=== PATIENT | female | born 1960 | race American Indian/Alaskan Native ===

== ENCOUNTER 2017-07-28 14:40 | Outpatient (CLI) | payer BC ==
--- NOTE | 2017-07-28 15:13 | Mammography Report ---
BILATERAL DIGITAL SCREENING MAMMOGRAM with CAD: 07/28/17 14:40:00 CLINICAL: Routine screening. COMPARISON:07/20/16 FINDINGS: The breasts are heterogeneously dense, which may obscure small masses. No mass, architectural distortion or suspicious calcifications. IMPRESSION: No mammographic evidence of malignancy. BI-RADS CATEGORY: 1 - - Negative RECOMMENDATION: Routine mammographic screening in one year. COMMENT: Patient follow-up letters are generated by our [employer] application.
== END 2017-07-28 14:41 | disposition home or self-care (01) ==
LOC: MAMMO 14:40
PROVIDERS: ATTEND Obstetrics & Gynecology Gynecology
DX: Z12.31 Encounter for screening mammogram for malignant neoplasm of breast (principal)
CPT/HCPCS: 77067; G0202

== ENCOUNTER 2018-08-01 10:26 | Outpatient (CLI) | payer BC ==
--- NOTE | 2018-08-01 11:16 | Mammography Report ---
BILATERAL MAMMOGRAM: FINDINGS: The breast tissue is heterogeneously dense, which could obscure detection of small masses (approximately 50%-75% glandular). No mass, distortion, suspicious calcification, or skin change is seen. No significant changes when compared to exams dating back to July 2016. CAD was utilized. IMPRESSION: Negative mammogram. There is no mammographic evidence of malignancy. RECOMMENDATION: Follow-up per ACS guidelines. BI-RADS CATEGORY: 1 = Negative ACR BI-RADS MAMMOGRAPHIC CODES: 0 = Needs additional imaging evaluation; 1 = Negative; 2 = Benign; 3 = Probably benign; 4 = Suspicious; 5 = Malignant; 6 = Known biopsy-proven malignancy COMMENT: 1. Dense breast tissue, i.e., adenosis, fibrocystic changes, etc., may obscure an underlying neoplasm. 2. Approximately 10% of cancers are not detected with mammography. 3. A negative mammography report should not delay biopsy if a clinically suspicious mass is present. COMMENT: Patient follow-up letters are generated in [place].
== END 2018-08-01 10:27 | disposition home or self-care (01) ==
LOC: MAMMO 10:26
PROVIDERS: ATTEND Obstetrics & Gynecology Gynecology
DX: Z12.31 Encounter for screening mammogram for malignant neoplasm of breast (principal)
CPT/HCPCS: 77067

== ENCOUNTER 2019-08-04 13:05 | Outpatient (CLI) | payer OTHER ==
--- NOTE | 2019-08-07 14:11 | Mammography Report ---
DIGITAL SCREENING MAMMOGRAM WITH CAD, 08/04/2019 INDICATION: Routine screening mammography. TECHNIQUE: Digital bilateral 2D mammography was obtained in the craniocaudal and mediolateral obliq ue projections. This examination was interpreted with the benefit of Computer-Aided Detection analysi s. COMPARISON: 08/01/2018 FINDINGS: Breast Density: The breasts are heterogeneously dense, which may obscure small masses. There is no evidence of dominant mass, suspicious calcifications or architectural distortion in eithe r breast. IMPRESSION: No mammographic evidence of malignancy. Follow up recommendation: Routine yearly BI-RADS Category 1: Negative. A "normal" or negative report should not discourage follow up or biopsy of a clinically significant f inding. A written summary of these findings will be mailed to the patient. The patient will be entered into a mammography reporting system which will generate a reminder letter for the patient's next appointmen t at the appropriate interval. The [employer] recommends yearly mammograms starting at age 40 and continuing as l eduard as a woman is in good health. Breast MRI is recommended for women with an approximate 20-25% or greater lifetime risk of breast cancer, including women with a strong family history of breast or ova jyoti cancer or who have been treated for Hodgkin's disease. Signer Name: Gary Johns MD Signed: 08/07/2019 2:07 PM Workstation Name: [id number]
== END 2019-08-04 13:06 | disposition home or self-care (01) ==
LOC: MAMMO 13:05
PROVIDERS: ATTEND Obstetrics & Gynecology Gynecology
DX: Z12.31 Encounter for screening mammogram for malignant neoplasm of breast (principal)
CPT/HCPCS: 77067

== ENCOUNTER 2020-08-05 08:24 | Outpatient (CLI) | payer OTHER ==
--- NOTE | 2020-08-05 10:28 | Mammography Report ---
DIGITAL SCREENING MAMMOGRAM WITH CAD, 08/05/2020 INDICATION: Routine screening mammography. TECHNIQUE: Digital bilateral 2D mammography was obtained in the craniocaudal and mediolateral obliq ue projections. This examination was interpreted with the benefit of Computer-Aided Detection analysi s. COMPARISON: Prior mammogram 08/04/2019 and 08/01/2018 FINDINGS: Breast Density: The breasts are heterogeneously dense, which may obscure small masses. There is no evidence of dominant mass, suspicious calcifications or architectural distortion in eithe r breast. There has been no significant change compared with the prior examinations. IMPRESSION: Follow up recommendation: Routine yearly BI-RADS Category 1: Negative. A "normal" or negative report should not discourage follow up or biopsy of a clinically significant f inding. A written summary of these findings will be mailed to the patient. The patient will be entered into a mammography reporting system which will generate a reminder letter for the patient's next appointmen t at the appropriate interval. The [employer] recommends yearly mammograms starting at age 40 and continuing as l eduard as a woman is in good health. Breast MRI is recommended for women with an approximate 20-25% or greater lifetime risk of breast cancer, including women with a strong family history of breast or ova jyoti cancer or who have been treated for Hodgkin's disease. Signer Name: Cheryl Flood MD Signed: 08/05/2020 10:24 AM Workstation Name: [id number]
== END 2020-08-05 08:25 | disposition home or self-care (01) ==
LOC: MAMMO 08:24
PROVIDERS: ATTEND Obstetrics & Gynecology Gynecology
DX: Z12.31 Encounter for screening mammogram for malignant neoplasm of breast (principal)
CPT/HCPCS: 77067

== ENCOUNTER 2021-08-06 15:05 | Outpatient (CLI) | payer BC ==
--- NOTE | 2021-08-06 16:35 | Mammography Report ---
DIGITAL SCREENING MAMMOGRAM WITH CAD, 08/06/2021 CLINICAL INFORMATION / INDICATION: Routine screening mammography. SCREENING MAMMOGRAM TECHNIQUE: Digital bilateral 2D mammography was obtained in the craniocaudal and mediolateral obliqu e projections. This examination was interpreted with the benefit of Computer-Aided Detection analysis . COMPARISON: 07/19/2013 through 08/05/2020. FINDINGS: Breast Density: The breasts are heterogeneously dense, which may obscure small masses. No dominant mass, suspicious calcifications, or architectural distortion in either breast. IMPRESSION: No mammographic evidence of malignancy. Follow up recommendation: Routine yearly BI-RADS Category 1: Negative. A "normal" or negative report should not discourage follow up or biopsy of a clinically significant f inding. A written summary of these findings will be mailed to the patient. The patient will be entered into a mammography reporting system which will generate a reminder letter for the patient's next appointmen t at the appropriate interval. The [employer] recommends yearly mammograms starting at age 40 and continuing as l eduard as a woman is in good health. Breast MRI is recommended for women with an approximate 20-25% or greater lifetime risk of breast cancer, including women with a strong family history of breast or ova jyoti cancer or who have been treated for Hodgkin's disease. Signer Name: Terrence Weiss MD Signed: 08/06/2021 4:31 PM Workstation Name: [id number]
== END 2021-08-06 15:06 | disposition home or self-care (01) ==
LOC: MAMMO 15:05
PROVIDERS: ATTEND Obstetrics & Gynecology Gynecology
DX: Z12.31 Encounter for screening mammogram for malignant neoplasm of breast (principal)
CPT/HCPCS: 77067

== ENCOUNTER 2022-08-07 14:51 | Outpatient (CLI) | payer BC ==
--- NOTE | 2022-08-11 10:46 | Mammography Report ---
DIGITAL SCREENING MAMMOGRAM WITH CAD, 08/07/2022 CLINICAL INFORMATION / INDICATION: Routine screening mammography. SCREENING MAMMOGRAM Z12.31 TECHNIQUE: Digital bilateral 2D mammography was obtained in the craniocaudal and mediolateral obliqu e projections. This examination was interpreted with the benefit of Computer-Aided Detection analysis . COMPARISON: Prior mammogram 08/06/2021 and 08/05/2020 FINDINGS: Breast Density: The breasts are heterogeneously dense, which may obscure small masses. No dominant mass, suspicious calcifications, or architectural distortion in either breast. There has been no significant change compared with the prior examinations. IMPRESSION: No mammographic evidence of malignancy. Follow up recommendation: Routine yearly screening mammogram. BI-RADS Category 1: NEGATIVE A "normal" or negative report should not discourage follow up or biopsy of a clinically significant f inding. A written summary of these findings will be mailed to the patient. The patient will be entered into a mammography reporting system which will generate a reminder letter for the patient's next appointmen t at the appropriate interval. The [employer] recommends yearly mammograms starting at age 40 and continuing as l eduard as a woman is in good health. Breast MRI is recommended for women with an approximate 20-25% or greater lifetime risk of breast cancer, including women with a strong family history of breast or ova jyoti cancer or who have been treated for Hodgkin's disease. Signer Name: Cheryl Flood MD Signed: 08/11/2022 10:41 AM Workstation Name: [id number]
== END 2022-08-07 14:52 | disposition home or self-care (01) ==
LOC: MAMMO 14:51
PROVIDERS: ATTEND Obstetrics & Gynecology Gynecology
DX: Z12.31 Encounter for screening mammogram for malignant neoplasm of breast (principal)
CPT/HCPCS: 77067